=== PATIENT | female | born 1970 | race African-American/Black ===

== ENCOUNTER 2023-03-22 10:55 | Emergency (ER) | payer BC ==
[2023-03-22 11:16] VITALS: BMI 33.6
[2023-03-22] MEDS ORDERED: ONDANSETRON *ODT* 4 MG TABLET SL ONE (11:20)
[2023-03-22] MEDS ORDERED: ONDANSETRON *ODT* 4 MG TABLET ONE (11:27)
[2023-03-22 13:01] LABS: HEMATOCRIT 42.9 % (32.4-45.2); HEMOGLOBIN 14.5 G/dL (10.7-15.3); MCH 29.9 pg (25.7-33.7); MCHC 33.7 g/dl (32.0-36.0); MEAN CELL VOLUME 88.9 fl (80-96); MEAN PLT VOLUME 10.6 fl (7.5-11.1); PLATELET COUNT 258.8 10^3/uL (134-434); RBC 4.83 10^6/uL (3.60-5.2); RDW 14.7 % (11.6-15.6); WHITE BLOOD COUNT 9.2 10^3/uL (4.0-10.8)
[2023-03-22 13:22] LABS: ALBUMIN 3.5 g/dl (3.4-5.0); BILIRUBIN,DIRECT 7.3 mg/dL (0.0-0.2); BILIRUBIN,TOTAL 11.6 mg/dl (0.2-1); CALCIUM 9.7 mg/dl (8.5-10); CREATININE 0.9 mg/dl (0.55-1.3); POTASSIUM 3.3 mmol/L (3.5-5.1); TOT PROT 7.2 g/dl (6.4-8.2)
[2023-03-22 13:36] LABS: INR 0.96 (0.83-1.09); PROTHROMBIN TIME (PATIENT) 11.1 SEC (9.7-13.0)
[2023-03-22 15:46] LABS: PLATELET ESTIMATE ADEQUATE
[2023-03-22 15:49] VITALS: RESP 16; TEMP 97.9
[2023-03-22] MEDS ORDERED: SODIUM CHLORIDE 1,000 ML IV SCH (18:45)
[2023-03-22 19:22] VITALS: BP 124/86; PULSE 88
[2023-03-25 09:37] LABS: ALBUMIN 0.4 g/dl (3.4-5.0); BILIRUBIN,DIRECT 0.6 mg/dL (0.0-0.2); SGOT/AST 43.8 U/L (15-37); SGPT/ALT 112.3 U/L (7-52); TOT PROT 0.7 g/dl (6.4-8.2)
== END 2023-03-22 23:43 | disposition short-term general hospital (02) ==
LOC: FER 10:55
DX: R10.13 Epigastric pain (principal); R11.2 Nausea with vomiting, unspecified; R63.0 Anorexia; R17 Unspecified jaundice; Z20.822 Contact with and (suspected) exposure to COVID-19
CPT/HCPCS: 36415; 76705-TC; 80053; 80076; 82248; 85025; 85610; 85730; 86850; 86900; 86901; 87635; 93005; 99285-25; Q0162